=== PATIENT | male | born 1960 | race Caucasian/White ===

== ENCOUNTER 2019-10-11 12:00 | Outpatient (CLI) | payer BC, SELFPAY | END 2019-10-11 12:01 | disposition home or self-care (01) | LOC: SLEEP 10-12 11:49 | PROVIDERS: Family Provider Nurse Practitioner Family; PCP Nurse Practitioner Family; Visit Provider Internal Medicine Critical Care Medicine | DX: J44.9 Chronic obstructive pulmonary disease, unspecified (principal) | CPT/HCPCS: 94762 ==